=== PATIENT | male | born 1950 | race Caucasian/White ===

== ENCOUNTER → 2024-07-26 | Outpatient (CLI) | payer MEDICARE, OTHER, SELFPAY ==
[2024-07-26 12:07] LABS: Absolute Lymphocyte Count 1.78 X10^3/uL (0.83-4.51); Absolute Neutrophil Count 3.6 X10^3/uL (2.0-7.7); Basophil# 0.04 X10^3/uL; Basophil% 0.7 % (0-1); Eosinophils% 1.6 % (0-5); Hematocrit 48.3 % (40-54); Hemoglobin 16.3 g/dL (13.0-16.5); Lymphocyte # 1.78 X10^3/ul (0.83-4.51); Lymphocyte % 29.1 % (19-41); Mean Corp Hgb Conc 33.7 g/dL (32-36); Mean Corpuscular Hgb 31.3 pg (27.0-32.0); Mean Corpuscular Volume 92.9 fL (80-94); Mean Platelet Vol. 9.5 fl (6.2-12.0); Monocyte# 0.54 X10^3/uL; Monocyte% 8.8 % (0-10); NRBC Flagged by Analyzer 0 % (0-5); Neutrophil # 3.62 X10^3/uL (2.7-7.7); Neutrophil % 59.3 % (47-70); Platelet Count 248 K/mm3 (150-450); RBC Distribution Width CV 12.5 % (11.6-14.6); RBC Distribution Width SD 42.8 fl (35.1-43.9); White Blood Count 6.1 K/mm3 (4.4-11.0)
[2024-07-26 13:02] LABS: ALB/GLOB Ratio 1.1 RATIO (0.9-2.4); AST(SGOT) 15 U/L (15-37); Alanine Aminotransfer ALT/SGPT 22 U/L (16-61); Albumin, Serum 3.7 g/dL (3.2-5.0); Alkaline Phosphatase 67 U/L (45-117); Anion Gap 7 (5-15); BUN 16 mg/dL (7-18); BUN/Creat Ratio 17.1 RATIO (10-20); Calcium,Total 9.5 mg/dL (8.5-10.1); Chloride 105 mmol/L (98-107); Cholesterol 258 mg/dL (200); Creatinine, Serum 0.94 mg/dL (0.70-1.30); EST Glomerular Filtration Rate 84 mL/min (>60); Est Glom Filt Rate - Afr Amer 102 mL/min (>60); Globulin 3.4 g/dL (2.2-4.2); Glucose 88 mg/dL (74-106); High Density Lipoprotein 71 mg/dL; Potassium 4.4 mmol/L (3.5-5.1); Protein, Total 7.1 g/dL (6.4-8.2); Sodium Level 138 mmol/L (136-145); Triglycerides 153 mg/dL; Very Low Density Lipoprotein 31 mg/dL (5-40)
== END | disposition home or self-care (01) ==
PROVIDERS: PCP Nurse Practitioner Family; Visit Provider Nurse Practitioner Family
DX: Z12.5 Encounter for screening for malignant neoplasm of prostate (principal); I10 Essential (primary) hypertension; E78.5 Hyperlipidemia, unspecified
CPT/HCPCS: 36415; 80053; 80061; 84153; 85025; G0103

== ENCOUNTER → 2025-01-24 | Outpatient (CLI) | payer MEDICARE, SELFPAY ==
[2025-01-24 12:38] LABS: Hematocrit 45.1 % (40-54); Hemoglobin 15.9 g/dL (13.0-16.5); Immature Granulocytes Count 0.020 X10^3/uL (0.0-0.0); Mean Corp Hgb Conc 35.3 g/dL (32-36); Mean Corpuscular Volume 90.9 fL (80-94); Mean Platelet Vol. 9.6 fl (6.2-12.0); NRBC Flagged by Analyzer 0 % (0-5); Platelet Count 226 K/mm3 (150-450); RBC Distribution Width CV 12.4 % (11.6-14.6); RBC Distribution Width SD 41.1 fl (35.1-43.9); Red Blood Count 4.96 M/mm3 (4.6-6.2); White Blood Count 6.7 K/mm3 (4.4-11.0)
[2025-01-24 13:34] LABS: AST(SGOT) 25 U/L (<=37); Alanine Aminotransfer ALT/SGPT 22 U/L (<=46); Albumin, Serum 4.3 g/dL (3.4-4.8); Alkaline Phosphatase 59 U/L (40-129); Anion Gap 11 (5-15); BUN 14 mg/dL (4-19); BUN/Creat Ratio 14.4 RATIO (10-20); Calcium,Total 10.0 mg/dL (7.6-11.0); Carbon Dioxide 25.0 mmol/L (21.0-32.0); Chloride 103 mmol/L (98-108); Cholesterol 209 mg/dL (<=200); Globulin 2.5 g/dL (2.2-4.2); Glucose 99 mg/dL (70-99); Low Density Lipoprotein Calc. 120 mg/dL; Potassium 4.3 mmol/L (3.3-5.1); Triglycerides 107 mg/dL; Very Low Density Lipoprotein 21 mg/dL (5-40); cholesterol:hdl ratio screen 3.11
--- OUTSIDE RECORDS SUMMARY | 2025-01-24 18:51 | XMS RPT_ITS | CCD ---
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 Name Role Phone Elena Smith Attending Unavailable Elena Smith Primary Care Unavailable Problems Problem Classification Problem Date Documented Da te Episodic/Chronic Other screening for suspected conditions (not mental disorders or infectious disease) (1 source) Encounter for screening for malignant neoplasm of prostate; Translations: [Encounter for screening for malignant neoplasm of prostate] Onset: 08-12-2024 Episodic Results Test Name Value Interpretation Reference Range Facil ity CBC W/Diff, Automatedon 07-01 Absolute Lymph 1.78 X10 3/uL Normal 0.83-4.51 [facility] Comment on above: Performed By: #### L 501.9910, L100.0100, L500.4100, L500.4050 #### [facility] [address] [place], [address] Absolute Neut 3.6 X10 3/uL Normal 2.0-7.7 [facility] Comment on above: Performed By: #### L 501.9910, L100.0100, L500.4100, L500.4050 #### [facility] [address] [place], [address] Basophils/100 WBC (Bld) 0.7 % Normal 0-1 [facility] Comment on above: Performed By: #### L 501.9910, L100.0100, L500.4100, L500.4050 #### [facility] [address] [place], [address] Eosinophils/100 WBC (Bld) 1.6 % Normal 0-5 [facility] Comment on above: Performed By: #### L 501.9910, L100.0100, L500.4100, L500.4050 #### [facility] [address] [place], [address] Erythrocyte distribution width (RBC) [Ratio] 12.5 % Normal 11.6-14.6 [facility] Comment on above: Performed By: #### L 501.9910, L100.0100, L500.4100, L500.4050 #### [facility] [address] [place], [address] Hematocrit (Bld) [Volume fraction] 48.3 % Normal 40-54 [facility] Comment on above: Performed By: #### L 501.9910, L100.0100, L500.4100, L500.4050 #### [facility] [address] [place], [address] Hemoglobin (Bld) [Mass/Vol] 16.3 g/dL Normal 13.0-16.5 [facility] Comment on above: Performed By: #### L 501.9910, L100.0100, L500.4100, L500.4050 #### [facility] [address] [place], [address] IG% 0.500 Normal 0.0-0.9 [facility] Comment on above: Result Comment: IG% - Immature Granulocytes (promyelocytes, myelocytes and metamyelocytes) > 1% indicates that a LEFT SHIFT is Present. Performed By: #### L 501.9910, L100.0100, L500.4100, L500.4050 #### [facility] [address] [place], [address] Lymphocytes/100 WBC (Bld) 29.1 % Normal 19-41 [facility] Comment on above: Performed By: #### L 501.9910, L100.0100, L500.4100, L500.4050 #### [facility] [address] [place], [address] MCH (RBC) [Entitic mass] 31.3 pg Normal 27.0-32.0 [facility] Comment on above: Performed By: #### L 501.9910, L100.0100, L500.4100, L500.4050 #### [facility] [address] [place], [address] MCHC (RBC) [Mass/Vol] 33.7 g/dL Normal 32-36 [facility] Comment on above: Performed By: #### L 501.9910, L100.0100, L500.4100, L500.4050 #### [facility] [address] [place], [address] MCV (RBC) [Entitic vol] 92.9 fL Normal 80-94 [facility] Comment on above: Performed By: #### L 501.9910, L100.0100, L500.4100, L500.4050 #### [facility] [address] [place], [address] Monocytes/100 WBC (Bld) 8.8 % Normal 0-10 [facility] Comment on above: Performed By: #### L 501.9910, L100.0100, L500.4100, L500.4050 #### [facility] [address] [place], [address] Neutrophils/100 WBC (Bld) 59.3 % Normal 47-70 [facility] Comment on above: Performed By: #### L 501.9910, L100.0100, L500.4100, L500.4050 #### [facility] [address] [place], [address] Nucleated RBC (Bld) [#/Vol] 0 10*3/uL Normal 0-5 [facility] Comment on above: Performed By: #### L 501.9910, L100.0100, L500.4100, L500.4050 #### [facility] [address] [place], [address] Platelet mean volume (Bld) [Entitic vol] 9.5 fL Normal 6.2-12.0 [facility] Comment on above: Performed By: #### L 501.9910, L100.0100, L500.4100, L500.4050 #### [facility] [address] [place], [address] Platelets (Bld) [#/Vol] 248 10*3/uL Normal 150-450 [facility] Comment on above: Performed By: #### L 501.9910, L100.0100, L500.4100, L500.4050 #### [facility] [address] [place], [address] RBC (Bld) [#/Vol] 5.20 10*6/uL Normal 4.6-6.2 [facility] Comment on above: Performed By: #### L 501.9910, L100.0100, L500.4100, L500.4050 #### [facility] [address] [place], [address] RDW SD 42.8 fl Normal 35.1-43.9 [facility] Comment on above: Performed By: #### L 501.9910, L100.0100, L500.4100, L500.4050 #### [facility] [address] [place], [address] WBC (Bld) [#/Vol] 6.1 10*3/uL Normal 4.4-11.0 [facility] Comment on above: Performed By: #### L 501.9910, L100.0100, L500.4100, L500.4050 #### [facility] [address] [place], [address] Comprehensive Metabolic Prof [facility] 07-26-2024 Albumin [Mass/Vol] 3.7 g/dL Normal 3.2-5.0 [facility] Comment on above: Performed By: #### L 501.9910, L100.0100, L500.4100, L500.4050 #### [facility] [address] [place], [address] Albumin/Globulin [Mass ratio] 1.1 {ratio} Normal 0.9-2.4 [facility] Comment on above: Performed By: #### L 501.9910, L100.0100, L500.4100, L500.4050 #### [facility] [address] [place], [address] ALK P 67 U/L Normal 45-117 [facility] Comment on above: Performed By: #### L 501.9910, L100.0100, L500.4100, L500.4050 #### [facility] [address] [place], [address] ALT [Catalytic activity/Vol] 22 U/L Normal 16-61 [facility] Comment on above: Performed By: #### L 501.9910, L100.0100, L500.4100, L500.4050 #### [facility] [address] [place], [address] AST [Catalytic activity/Vol] 15 U/L Normal 15-37 [facility] Comment on above: Performed By: #### L 501.9910, L100.0100, L500.4100, L500.4050 #### [facility] [address] [place], [address] Bilirubin [Mass/Vol] 0.70 mg/dL Normal 0.20-1.00 [facility] Comment on above: Result Comment: For patients on eltrombopag therapy, use of Dimension [place] TBIL is not recommended. Performed By: #### L 501.9910, L100.0100, L500.4100, L500.4050 #### [facility] [address] [place], [address] BUN/CRE 17.1 RATIO Normal 10-20 [facility] Comment on above: Performed By: #### L 501.9910, L100.0100, L500.4100, L500.4050 #### [facility] [address] [place], [address] CA,Total 9.5 mg/dL Normal 8.5-10.1 [facility] Comment on above: Performed By: #### L 501.9910, L100.0100, L500.4100, L500.4050 #### [facility] [address] [place], [address] Chloride [Moles/Vol] 105 mmol/L Normal 98-107 [facility] Comment on above: Performed By: #### L 501.9910, L100.0100, L500.4100, L500.4050 #### [facility] [address] [place], [address] CO2 [Moles/Vol] 26.0 mmol/L Normal 21.0-32.0 [facility] Comment on above: Performed By: #### L 501.9910, L100.0100, L500.4100, L500.4050 #### [facility] [address] [place], [address] Creatinine [Mass/Vol] 0.94 mg/dL Normal 0.70-1.30 [facility] Comment on above: Result Comment: The validity of the calculated GFR GFRAA in patients over 70 years has not been determined. Clinical correlation is essential. Performed By: #### L 501.9910, L100.0100, L500.4100, L500.4050 #### [facility] [address] [place], [address] EST GFR - AA 102 mL/min Normal >60 [facility] Comment on above: Result Comment: Afri can Georgian GFR Calc Performed By: #### L 501.9910, L100.0100, L500.4100, L500.4050 #### [facility] [address] [place], [address] GAP 7 Normal 5-15 [facility] Comment on above: Performed By: #### L 501.9910, L100.0100, L500.4100, L500.4050 #### [facility] [address] [place], [address] GFR/1.73 sq M.predicted among non-blacks MDRD (S/P/Bld) [Vol rate/Area] 84 mL/min/{1.73_m2} Normal >60 [facility] Comment on above: Result Comment: Non- GFR Calc Performed By: #### L 501.9910, L100.0100, L500.4100, L500.4050 #### [facility] [address] [place], [address] Globulin (S) [Mass/Vol] 3.4 g/dL Normal 2.2-4.2 [facility] Comment on above: Performed By: #### L 501.9910, L100.0100, L500.4100, L500.4050 #### [facility] [address] [place], [address] Glucose [Mass/Vol] 88 mg/dL Normal 74-106 [facility] Comment on above: Performed By: #### L 501.9910, L100.0100, L500.4100, L500.4050 #### [facility] [address] [place], [address] Potassium [Moles/Vol] 4.4 mmol/L Normal 3.5-5.1 [facility] Comment on above: Performed By: #### L 501.9910, L100.0100, L500.4100, L500.4050 #### [facility] [address] [place], [address] Sodium [Moles/Vol] 138 mmol/L Normal 136-145 [facility] Comment on above: Performed By: #### L 501.9910, L100.0100, L500.4100, L500.4050 #### [facility] [address] [place], [address] T PROT 7.1 g/dL Normal 6.4-8.2 [facility] Comment on above: Performed By: #### L 501.9910, L100.0100, L500.4100, L500.4050 #### [facility] [address] [place], [address] Urea nitrogen [Mass/Vol] 16 mg/dL Normal 7-18 [facility] Comment on above: Performed By: #### L 501.9910, L100.0100, L500.4100, L500.4050 #### [facility] [address] [place], [address] Lipid Profileon 07-26-2024 Cholesterol [Mass/Vol] 258 mg/dL High 200 [facility] Comment on above: Result Comment: <200 mg/dL Desirable 200-240 mg/dL Borderline >240 mg/dL High Risk Performed By: #### L 501.9910, L100.0100, L500.4100, L500.4050 #### [facility] [address] [place], [address] Cholesterol in HDL [Mass/Vol] 71 mg/dL Normal [facility] Comment on above: Result Comment: The drugs N-Acetylcysteine and Metamizole may falsely depress this assay. Reference Range HDL <40 mg/dL Low HDL Cholesterol HDL >or= 60 mg/dL High HDL Cholesterol Performed By: #### L 501.9910, L100.0100, L500.4100, L500.4050 #### [facility] [address] [place], [address] Cholesterol in LDL [Mass/Vol] 156 mg/dL High 0-130 [facility] Comment on above: Performed By: #### L 501.9910, L100.0100, L500.4100, L500.4050 #### [facility] [address] [place], [address] Cholesterol in VLDL [Mass/Vol] 31 mg/dL Normal 5-40 [facility] Comment on above: Performed By: #### L 501.9910, L100.0100, L500.4100, L500.4050 #### [facility] [address] [place], [address] Triglyceride [Mass/Vol] 153 mg/dL Normal [facility] Comment on above: Result Comment: The drugs N-Acetylcysteine and Metamizole may falsely depress this assay. Serum Triglycerides Reference Interval Normal <150 mg/dL Borderline high 150 - 199 mg/dL High 200 - 499 mg/dL Very High > or = 500 mg/dL Performed By: #### L 501.9910, L100.0100, L500.4100, L500.4050 #### [facility] [address] [place], [address] PSA,Total - Annual Screenon 07-26-2024 PSA,TOT SCREEN 3.00 ng/mL Normal 0.00-4.00 [facility] Comment on above: Result Comment: This test was performed using the TPSA assay method for the [employer] system. Values obtained with different assay methods cannot be used interchangably. When changing PSA assays in the course of monitoring a patient, additional sequential testing should be carried out to confirm baseline values. Performed By: #### L 501.9910, L100.0100, L500.4100, L500.4050 #### [facility] [address] [place], [address] Encounters Encounter Date Encounter Type Care Provider Facility Start: 07-26-2024 End: 07-26-2024 ambulatory Elena Smith Facility:[facility] Payers Date Payer Category Payer Medicare [id number] 2024 Private Health Insurance [id number] 2024 Self-pay Unknown [id number] Summary Purpose Family History No Family History Records Found Advance Directives No Advanced Directives Records Found Additional Source Comments (unrecognized sect ion and content) No Status Records Found INFORMATION SOURCE (unrecogn ized section and content) DATE CREATED AUTHOR 08/13/2024 [facility] FOR RECORDS PERTAINING TO PATIENTS WHO ARE OR HAVE BEEN ENROLLED IN A CHEMICAL DEPENDENCY/SUBSTANCEABUSE PROGRAM, SOME INFORMATION MAY BE OMITTED. This clinical summary was aggregated from multiple sources. Caution should be exercised in using it in the provision of clinical care. This summary normalizes information from multiple sources, and as a consequence, information in this document may materially change the coding, format and clinical context of patient data. In addition, data may be omitted in some cases. CLINICAL DECISIONS SHOULD BE BASED ON THE PRIMARY CLINICAL RECORDS. [employer] provides no warranty or guarantee of the accuracy or completeness of information in this document.
== END | disposition home or self-care (01) ==
LOC: MTLAB 09:30
PROVIDERS: PCP Nurse Practitioner Family; Referring Provider Nurse Practitioner Family; Visit Provider Nurse Practitioner Family
DX: I10 Essential (primary) hypertension (principal); E78.5 Hyperlipidemia, unspecified
CPT/HCPCS: 36415; 80053; 80061; 85025